=== PATIENT | female | born 1950 | race American Indian/Alaskan Native ===

== ENCOUNTER 2019-04-01 19:26 | Emergency (ER) | payer OTHER ==
[2019-04-01 19:34] VITALS: BP 159/61
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
[2019-04-01] MEDS ORDERED: IBUPROFEN PO ONE (21:18)
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
== END 2019-04-02 00:10 | disposition home or self-care (01) ==
LOC: ED 19:26
DX: S29.012A Strain of muscle and tendon of back wall of thorax, initial encounter (principal); S46.912A Strain of unspecified muscle, fascia and tendon at shoulder and upper arm level, left arm, initial encounter; S13.4XXA Sprain of ligaments of cervical spine, initial encounter; R51 Headache; Z90.710 Acquired absence of both cervix and uterus; V49.49XA Driver injured in collision with other motor vehicles in traffic accident, initial encounter; Y93.89 Activity, other specified; Y92.488 Other paved roadways as the place of occurrence of the external cause; Y99.8 Other external cause status
CPT/HCPCS: 70450; 72040; 72070